=== PATIENT | female | born 1955 | race Caucasian/White ===

== ENCOUNTER 2017-11-28 02:28 | Inpatient (IN) | payer OTHER ==
[~2017-11-28] VITALS: Ht 154.9 cm; Wt 90.5 kg
[2017-11-28] VITALS (9 sets, daily range): BP systolic 88–101; BP diastolic 46–64
[2017-11-28] MEDS ORDERED: METOPROLOL TARTRATE 5MG/5ML VIAL IV SCH (03:15)
[2017-11-28] MEDS ORDERED: DIAZEPAM 5 MG/ML 2ML CPJ IV ONE (03:15)
[2017-11-28] MEDS ORDERED: SODIUM CHLORIDE 0.9% 1000ML BAG (SEPSIS BOLUS) IV ONE (03:15)
[2017-11-28] MEDS ORDERED: PIPERACILLIN/TAZOBACTAM 3.375GM/50ML PREMIX IV ONE (03:30)
[2017-11-28] MEDS ORDERED: VANCOMYCIN 1,500 MG in DEXT 5% WATER 250 ML IV SCH (03:30)
[2017-11-28] MEDS ORDERED: PIPERACILLIN/TAZ 3.375G PREMIX 50 ML IV NR (03:30)
[2017-11-28 03:39] LABS: BASOPHILS % 0.2 % (0.0-2.0); EOSINOPHILS % 0.2 % (0.0-5.0); HEMATOCRIT. 42.7 % (36.0-48.0); HEMOGLOBIN. 13.3 g/dL (12.0-16.0); LYMPHOCYTES % 12.6 % (20.0-50.0); MEAN CORPUSCULAR HEMOGLOBIN 25.5 pg (28.0-32.0); MEAN CORPUSCULAR VOLUME 81.6 fL (81.0-99.0); MEAN PLATELET VOLUME 8.8 fl (7.4-10.4); PLATELET 559 x1000/uL (130-400); RED BLOOD CELL COUNT 5.23 mill/uL (4.2-5.4)
[2017-11-28 03:43] LABS: PROTHROMBIN TIME 10.5 sec (9.4-11.6)
[2017-11-28] MEDS ORDERED: MIDAZOLAM HCL 5 MG/5 ML VIAL IV NR ×2 (03:45→05:00)
[2017-11-28] MEDS ORDERED: MIDAZOLAM HCL 2 MG/2 ML VIAL IV ONE ×2 (03:45→04:45)
[2017-11-28 03:46] LABS: CHLORIDE 101 mEq/L (98-107)
[2017-11-28 04:03] LABS: CREATINE KINASE 241 IU/L (26-192)
[2017-11-28 04:13] LABS: TROPONIN I 0.43 ng/mL (0.00-0.04)
[2017-11-28] MEDS ORDERED: CALCIUM GLUCONATE 100MG/ML 10ML VIAL IV NR (04:45)
[2017-11-28] MEDS ORDERED: ASPIRIN 325MG EC TABLET PO NR (04:45)
[2017-11-28] MEDS ORDERED: KETOROLAC 30MG/ML VIAL IV NR (04:45)
[2017-11-28] MEDS ORDERED: DOCUSATE SODIUM 100MG CAPSULE PO PRN (07:30)
[2017-11-28] MEDS ORDERED: ONDANSETRON HCL 4MG/2ML VIAL IV PRN (07:30)
[2017-11-28] MEDS ORDERED: DIPHENHYDRAMINE 50MG/ML VIAL IV PRN (07:30)
[2017-11-28] MEDS ORDERED: ENOXAPARIN 40MG/0.4ML SYR SUBCUT SCH (07:30)
[2017-11-28] MEDS ORDERED: NA PHOS,M-B/NA PHOS,DI-BA ENEMA 118ML PR PRN (07:30)
[2017-11-28] MEDS ORDERED: GUAIFENESIN 200MG/10ML SUGAR FREE UDC PO PRN (07:30)
[2017-11-28] MEDS ORDERED: MORPHINE SULFATE 4 MG/ML CPJ (NOT FOR IM USE) IV PRN (07:30)
[2017-11-28] MEDS ORDERED: VANCOMYCIN 1 G PREMIX 200 ML IV SCH (07:30)
[2017-11-28] MEDS ORDERED: MAGNESIUM/ALUMINUM HYDROXIDE/SIMETHICONE 30ML UDC PO PRN (07:30)
[2017-11-28] MEDS ORDERED: CLONIDINE 0.1MG TABLET PO PRN (07:30)
[2017-11-28] MEDS ORDERED: IPRATROPIUM/ALBUTEROL 0.5-3(2.5)MG/3ML NEB INH PRN (07:30)
[2017-11-28] MEDS ORDERED: NITROGLYCERIN 0.4MG TABLET SL SL PRN (07:30)
[2017-11-28] MEDS ORDERED: TIZA4TAB4 PO (09:16)
[2017-11-28] MEDS ORDERED: GABA-290 PO (09:16)
[2017-11-28] MEDS ORDERED: METF500T4 PO (09:16)
[2017-11-28] MEDS ORDERED: ASPI-867 PO (09:16)
[2017-11-28] MEDS ORDERED: ATOR10TA69 PO (09:16)
[2017-11-28] MEDS ORDERED: LISI10TA5 PO (09:16)
[2017-11-28] MEDS ORDERED: CLON0.5T4 PO (09:16)
[2017-11-28] MEDS ORDERED: BACL-141 PO (09:16)
[2017-11-28] MEDS: ASPIRIN 325MG EC TABLET PO SCH (10:04)
[2017-11-28] MEDS: FAMOTIDINE 20MG/2ML VIAL IV SCH (10:04)
[2017-11-28] MEDS: ENOXAPARIN 100MG/ML SYR SUBCUT SCH ×2 (10:05→21:29)
[2017-11-28] MEDS: SODIUM CHLORIDE 0.9% 1,000 ML IV SCH (10:06)
[2017-11-28] MEDS: PIPERACILLIN/TAZ 3.375G PREMIX 50 ML IV SCH ×2 (11:30→19:42)
[2017-11-28] MEDS ORDERED: DEXTROSE 50% WATER 50ML SYRINGE IV PRN (12:45)
[2017-11-28] MEDS: BLOOD SUGAR DIAGNOSTIC STRIP TEST SCH ×3 (12:48→21:22)
[2017-11-28] MEDS: INSULIN LISPRO 100 UNITS/ML SUBCUT SCH ×3 (12:53→21:36)
[2017-11-28 14:52] LABS: BG CARBOXYHEMOGLOBIN 0.1 % (0.5-1.5); BG FRACTION INSPIRED OXYGEN 36; BG HCO3 ACT 18.3 mmol/L (22.0-26.0); BG METHEMOGLOBIN 0.2 % (0.0-1.5); BG OXYHEMOGLOBIN 98.7 % (94.0-97.0); BG PCO2 40.1 mmHg (35.0-45.0); BG PH 7.276 (7.350-7.450); BG PO2 181.7 mmHg (75.0-100.0); BG SAMPLE SITE RIGHT BRACHIAL; BG TOTAL HEMOGLOBIN 12.2 g/dL (12.0-18.0); BG VENT MODE NASAL CANNULA
[2017-11-28 17:28] LABS: CREATINE KINASE MB FRACTION 34.5 ng/mL (0.5-3.6)
[2017-11-28 17:41] LABS: TROPONIN I 5.1 ng/mL (0.00-0.04)
[2017-11-28] MEDS: ACETAMINOPHEN 325MG TABLET PO PRN (18:47)
[2017-11-28] MEDS: TRAMADOL 50MG TABLET PO PRN (19:42)
[2017-11-28] MEDS ORDERED: ZOLPIDEM TARTRATE 5MG TABLET PO PRN (21:00)
[2017-11-28] MEDS: BACLOFEN 10MG TABLET PO SCH (21:27)
[2017-11-28] MEDS: LORAZEPAM 2MG/ML CPJ IV PRN (21:27)
[2017-11-28] MEDS: VANCOMYCIN 1 G PREMIX 200 ML IV SCH (23:16)
[2017-11-29] VITALS (13 sets, daily range): BP systolic 92–151; BP diastolic 14–77
[2017-11-29] MEDS: SODIUM CHLORIDE 0.9% 1,000 ML IV SCH ×2 (01:39→03:24)
[2017-11-29] MEDS: LORAZEPAM 2MG/ML CPJ IV PRN ×3 (01:45→10:05)
[2017-11-29] MEDS: PIPERACILLIN/TAZ 3.375G PREMIX 50 ML IV SCH ×2 (03:48→10:48)
[2017-11-29] MEDS: TRAMADOL 50MG TABLET PO PRN (04:43)
[2017-11-29] MEDS: BACLOFEN 10MG TABLET PO SCH ×2 (05:14→13:38)
[2017-11-29] MEDS: BLOOD SUGAR DIAGNOSTIC STRIP TEST SCH ×4 (07:55→20:37)
[2017-11-29] MEDS: FAMOTIDINE 20MG/2ML VIAL IV SCH (09:36)
[2017-11-29] MEDS: ENOXAPARIN 100MG/ML SYR SUBCUT SCH ×2 (09:36→20:50)
[2017-11-29] MEDS: ASPIRIN 325MG EC TABLET PO SCH (09:36)
[2017-11-29] MEDS: INSULIN LISPRO 100 UNITS/ML SUBCUT SCH ×4 (09:37→20:40)
[2017-11-29] MEDS ORDERED: TIZANIDINE (09:41)
[2017-11-29] MEDS ORDERED: TIZANIDINE HCL 4MG TABLET PO SCH (09:45)
[2017-11-29] MEDS ORDERED: DIAZEPAM 5 MG/ML 2ML CPJ IV ONE (10:15)
[2017-11-29] MEDS: CLONAZEPAM 0.5MG TABLET PO SCH ×2 (10:48→17:19)
[2017-11-29] MEDS ORDERED: TIZANIDINE HCL 2MG TABLET PO SCH (11:00)
[2017-11-29 12:21] LABS: HEMATOCRIT. 32.1 % (36.0-48.0); HEMOGLOBIN. 10.1 g/dL (12.0-16.0); MEAN CORPUSCULAR HEMOGLOBIN 25.4 pg (28.0-32.0); MEAN CORPUSCULAR VOLUME 80.4 fL (81.0-99.0); MEAN PLATELET VOLUME 8.3 fl (7.4-10.4); PLATELET 335 x1000/uL (130-400); RED BLOOD CELL COUNT 3.99 mill/uL (4.2-5.4); RED CELL DISTRIBUTION WIDTH 15.7 % (11.6-14.6)
[2017-11-29 12:33] LABS: CHLORIDE 106 mEq/L (98-107)
[2017-11-29 12:55] LABS: CREATINE KINASE 2468 IU/L (26-192); CREATINE KINASE MB FRACTION 28.7 ng/mL (0.5-3.6); HDL CHOLESTEROL 76 mg/dL (40-59); LDL CHOLESTEROL 32 mg/dL (5-100)
[2017-11-29 13:02] LABS: PLATELET ESTIMATE NORMAL
[2017-11-29] MEDS ORDERED: METHYLPREDNISOLONE SOD SUCC 125 MG/2 ML VIAL IV SCH (14:00)
[2017-11-29] MEDS ORDERED: GABAPENTIN 300MG CAPSULE PO SCH (14:00)
[2017-11-29] MEDS ORDERED: METRONIDAZOLE 500 MG PREMIX 100 ML IV SCH (14:00)
[2017-11-29] MEDS ORDERED: VANCOMYCIN HCL 1000 MG/20 ML ORAL PO SCH (18:00)
[2017-11-29] MEDS ORDERED: PIPERACILLIN/TAZ 3.375G PREMIX 50 ML IV SCH (18:00)
[2017-11-29] MEDS: VANCOMYCIN 1 G PREMIX 200 ML IV SCH (18:11)
[2017-11-29] MEDS: ACETAMINOPHEN 325MG TABLET PO PRN (20:45)
[2017-11-29] MEDS ORDERED: FAMOTIDINE 20MG/2ML VIAL IV SCH (21:00)
== END 2017-11-29 22:00 | disposition short-term general hospital (02) | DRG 871 ==
LOC: ER 02:28 → 5EST 04:38 → EDBEDREQ 04:42 → EDBEDREQSVC 04:42 → ENRESERV 07:09
PROVIDERS: ADMIT Internal Medicine; ATTEND Internal Medicine
PROC: 5A09457 Assistance with Respiratory Ventilation, 24-96 Consecutive Hours, Continuous Positive Airway Pressure (ICD-10-PCS; principal; 2017-11-28)
DX: A41.9 Sepsis, unspecified organism (principal); J96.01 Acute respiratory failure with hypoxia; I21.4 Non-ST elevation (NSTEMI) myocardial infarction; A04.72 Enterocolitis due to Clostridium difficile, not specified as recurrent; E11.65 Type 2 diabetes mellitus with hyperglycemia; E11.42 Type 2 diabetes mellitus with diabetic polyneuropathy; I47.1 Supraventricular tachycardia; G25.82 Stiff-man syndrome; E87.2 Acidosis; E87.5 Hyperkalemia; E66.01 Morbid (severe) obesity due to excess calories; G89.29 Other chronic pain; E78.00 Pure hypercholesterolemia, unspecified; F32.9 Major depressive disorder, single episode, unspecified; F41.9 Anxiety disorder, unspecified; I10 Essential (primary) hypertension; Z85.3 Personal history of malignant neoplasm of breast; Z92.3 Personal history of irradiation; Z79.84 Long term (current) use of oral hypoglycemic drugs; Z79.899 Other long term (current) drug therapy; Z68.37 Body mass index [BMI] 37.0-37.9, adult
CPT/HCPCS: 36415; 36600; 71045; 74018; 80053; 80061; 82375; 82550; 82553; 82805; 82962; 83036; 83605; 83735; 83880; 84484; 85025; 85610; 87040; 87493; 93005; 93306; 93970; J0610; J1650; J1815; J1885; J2060; J2250; J2270; J2543; J2930; J3370; J3490; J7030; J7040; J7060